=== PATIENT | male | born 1945 | race Caucasian/White ===

== ENCOUNTER 2017-02-20 12:13 | Emergency (ER) | payer OTHER ==
[2017-02-20 14:26] VITALS: BP 156/81
== END 2017-02-20 14:26 | disposition home or self-care (01) ==
LOC: ED 12:13
DX: E11.649 Type 2 diabetes mellitus with hypoglycemia without coma (principal); Z79.84 Long term (current) use of oral hypoglycemic drugs; I10 Essential (primary) hypertension